=== PATIENT | female | born 1985 | race Caucasian/White ===

== ENCOUNTER 2018-06-25 10:17 | Outpatient (CLI) | payer BC ==
[2018-06-25] MEDS ORDERED: IOHEXOL 50 ML IV ONE (10:49)
== END 2018-06-25 19:58 | disposition home or self-care (01) ==
LOC: SRD 10:17
PROVIDERS: ATTEND Obstetrics & Gynecology
DX: N97.9 Female infertility, unspecified (principal)
CPT/HCPCS: 74740; C1751; Q9967